=== PATIENT | male | born 1980 | race Caucasian/White ===

== ENCOUNTER 2019-01-17 01:12 | Emergency (ER) | payer SELFPAY ==
[2019-01-17] MEDS: LORAZEPAM 0.5 MG TAB PO (02:58)
[2019-01-17] MEDS: morphine 4 MG/ML VIAL IM (02:58)
[2019-01-17] MEDS: ONDANSETRON (ODT) 4 MG TAB ODT (02:58)
[2019-01-17] MEDS: HYDROmorphONE 0.5 MG/0.5 ML SYG IM ×2 (04:45→05:26)
== END 2019-01-17 06:41 | disposition home or self-care (01) ==
LOC: E/R 01:12
DX: K08.89 Other specified disorders of teeth and supporting structures (principal); F17.210 Nicotine dependence, cigarettes, uncomplicated
CPT/HCPCS: 96372; 99284-25